=== PATIENT | female | born 1965 | race Asian ===

== ENCOUNTER 2018-05-04 12:19 | Day surgery (SDC) | payer OTHER ==
--- NOTE | 2018-05-04 11:14 | ANESTHESIA ---
Pre-Anesthesia VS, & Labs - Diagnosis endometrial polyp, post-menopausal bleeding - Procedure myosure hysteroscopy, D&C Vital Signs: Last Vital Signs Temp 36.8 C 05/04/18 12:30 Pulse 68 05/04/18 12:30 Resp 16 05/04/18 12:30 BP 116/86 H 05/04/18 12:30 Pulse Ox 98 05/04/18 12:30 Height 5 ft Weight (kg) 53.52 kg Height 5 ft Weight (kg) 53.52 kg - Is Patient ?: Waiver signed (refused urine HCG) Home Medications and Allergies Home Medications: Ambulatory Orders Cholecalciferol (Vitamin D3) [Vitamin D] 50,000 unit PO OAW 04/29/18 Multivitamin [Daily Multiple Vitamin] 1 each PO 04/29/18 Cholecalciferol (Vitamin D3) [Vitamin D] 50,000 unit PO OAW 04/29/18 Multivitamin [Daily Multiple Vitamin] 1 each PO 04/29/18 Allergies/Adverse Reactions: Allergies Allergy/AdvReac Type Severity Reaction Status Date / Time No Known Drug Allergies Allergy Verified 04/29/18 08:17 Anes History & Medical History - Anesthetic History Anesthesia Complications: reports: No previous complications - Medical History Cardiovascular: reports: None Pulmonary: reports: None Gastrointestinal: reports: None Urinary: reports: Other Musculoskeletal: reports: None Endocrine/Autoimmune: reports: None Skin: reports: None - Surgical History Gynecologic: Dilation and currettage Exam General: Alert, Oriented x3, Cooperative Dental: WNL Mouth Openin Fingerbreadth Neck Mobility: Normal Mallampati classification: II Thyromental Distance: 4-6 cm Respiratory: Lungs clear, Normal breath sounds Cardiovascular: Regular rate Neurological: Normal speech Mental/Cognitive Status: Alert/Oriented X3, Normal for patient Cognitive Status: Within normal limits Plan Anesthesia Type: General Regional Block: Per Surgeon's request for Post Op pain control Consent for Procedure(s) Verified and Reviewed: Yes Code Status: Attempt Resuscitation ASA classification: 2-Mild systemic disease Is this case an emergency?: No
[~2018-05-04 12:19] MED LIST: LIDOCAINE 1% 50 ML MDV ONE
[2018-05-04] MEDS ORDERED: LACTATED RINGERS 1,000 ML IV ONE (12:46)
[2018-05-04] MEDS ORDERED: DEXAMETHASONE 4 MG/ML VIAL IVP ONE (14:00)
[2018-05-04] MEDS ORDERED: KETOROLAC 30 MG/ML VIAL IVP ONE (14:00)
[2018-05-04] MEDS ORDERED: PROPOFOL 200 MG/20 ML VIAL IVP ONE (14:00)
[2018-05-04] MEDS ORDERED: fentaNYL 100 MCG/2 ML VIAL IVP ONE (14:00)
[2018-05-04] MEDS ORDERED: ACETAMINOPHEN 1,000 MG/100 ML 100 ML IV ONE (14:00)
[2018-05-04] MEDS ORDERED: LIDOCAINE-MPF 2% 5 ML VIAL IM ONE (14:00)
[2018-05-04] MEDS ORDERED: ONDANSETRON 4 MG/2 ML VIAL IVP ONE (14:00)
[2018-05-04] MEDS ORDERED: MIDAZOLAM 2 MG/2 ML VIAL IVP ONE (14:00)
[2018-05-04] MEDS ORDERED: LIDOCAINE 1% 50 ML MDV IM ONE (14:22)
[2018-05-04] MEDS ORDERED: HYDROcod/ACETAM 10 MG/325 MG TABLET PO PRN (15:05)
--- NOTE | 2018-05-04 15:09 | OPERATIVE REPORT ---
Operative Report - General Procedure Date: 05/04/18 Planned Procedure: Hysteroscopy with Myosure Pre-Op Diagnosis: Postmenopausal bleeding Procedure Performed: Same as above Post Op Diagnosis: Postmenopausal bleeding - Procedure Note Primary Surgeon: Bonnie Anesthesia Technique: General ET tube Pathology: Endometrial curettings Indications: Postmenopausal bleeding Findings: Examination under anesthesia revealed a normal sized axial uterus and nonpalpable adnexa Operative findings: The uterus sounded to 6 cm. The endometrial cavity was atrophic and there was no obvious endometrial polyp. - Other Other Information/Narrative: The patient was taken to the operating room, where general anesthesia with LMA was administered without difficulty. She was then positioned in the high dorsal lithotomy position with her lower extremities in [place] Fin stirrups. Exam under anesthesia was then performed with the findings as noted above. Vagina and perineum were then prepped and draped in a sterile fashion. Procedure Time-Out was then performed. A sterile bivalved speculum was then placed into the vagina, and the anterior lip of the cervix was grasped with a single-tooth tenaculum. 1% lidocaine was then injected at the 2:00, 4:00, 7:00, and 10:00 positions for a paracervical block. Serial dilation using Hegar dilators was then performed until the Myosure hysteroscope could be advanced. Using saline for distension, the cavity was visualized with the findings as note above. Myosure was used to obtain endometrial curettings, then the scope removed. Total fluid deficit was 390 ml. The tenaculum was removed, and the tenaculum sites were hemostatic without need for silver nitrate. The speculum was then removed from the vagina. At this point, the procedure was deemed completed. Sponge, lap, and needle co unt were correct x 3, and there were no complications. The patient was awakened, replaced supine, and transferred to the PACU in stable condition.
[2018-05-04 16:06] VITALS: BP 102/61
== END 2018-05-04 12:20 | disposition home or self-care (01) ==
LOC: SDS 12:19
PROVIDERS: ATTEND Obstetrics & Gynecology
PROC: 0UDB8ZX Extraction of Endometrium, Via Natural or Artificial Opening Endoscopic, Diagnostic (ICD-10-PCS; 2018-05-04)
PROC: 0UB98ZZ Excision of Uterus, Via Natural or Artificial Opening Endoscopic (ICD-10-PCS; principal; 2018-05-04 13:30)
DX: N84.0 Polyp of corpus uteri (principal); N95.0 Postmenopausal bleeding
CPT/HCPCS: 58558; J0131; J7120

== ENCOUNTER 2019-10-17 17:40 | Emergency (ER) | payer OTHER ==
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
[2019-10-17 18:05] VITALS: BP 128/65
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
== END 2019-10-17 19:05 | disposition home or self-care (01) ==
LOC: ED 17:40
DX: S39.012A Strain of muscle, fascia and tendon of lower back, initial encounter (principal); S20.211A Contusion of right front wall of thorax, initial encounter; V53.6XXA Passenger in pick-up truck or van injured in collision with car, pick-up truck or van in traffic accident, initial encounter; Y92.410 Unspecified street and highway as the place of occurrence of the external cause
CPT/HCPCS: 72070; 99283